=== PATIENT | male | born 1970 | race Caucasian/White ===

== ENCOUNTER 2024-10-26 07:43 | Emergency (ER) | payer OTHER ==
[~2024-10-26] VITALS: Ht 172.7 cm; Wt 87.0 kg
[~2024-10-26 07:43] MED LIST: CALC667C MT; FURO-152 PO; FURO40TA5 PO; HYDR50TA39 PO; ISOS30TA11 PO; METO-396 MT; ROPI2TAB28 MT; SITA25TA3 MT
[2024-10-26 08:01] VITALS: O2SAT 100
[2024-10-26 08:26] LABS: HEMATOCRIT 25.1 % (42.0-52.0); HEMOGLOBIN 8.1 g/dL (14.0-18.0); MEAN CORPUSCULAR HEMOGLOBIN 30.5 pg (28.0-32.0); MEAN CORPUSCULAR HGB CONC 32.4 g/dL (31.0-37.0); MEAN CORPUSCULAR VOLUME 94.3 fL (80.0-94.0); PLATELET 273 x1000/uL (130-400); RED BLOOD CELL COUNT 2.66 mill/uL (4.7-6.1); RED CELL DISTRIBUTION WIDTH 15.8 % (11.6-14.6); WHITE BLOOD COUNT 12.6 x1000/uL (4.5-11.0)
[2024-10-26 08:36] LABS: CHLORIDE 102 mEq/L (98-107); POTASSIUM 4.5 mEq/L (3.5-5.1); SODIUM 136 mEq/L (136-145)
[2024-10-26 08:37] LABS: CALCIUM 8.7 mg/dL (8.7-10.4); CARBON DIOXIDE 23 mEq/L (21-32)
[2024-10-26 08:42] LABS: GLUCOSE 119 mg/dL (70-105); UREA NITROGEN BLOOD 60 mg/dL (9-23)
[2024-10-26 08:43] LABS: TROPONIN I HIGH SENSITIVITY 32 ng/L (3.0-53)
[2024-10-26 08:44] LABS: ALANINE AMINOTRANSFERASE 54 IU/L (10-49); ALBUMIN 3.7 g/dL (3.2-4.8); ASPARTATE AMINOTRANSFERASE 47 IU/L (<34); BILIRUBIN TOTAL 0.3 mg/dL (0.1-1.0); PROTEIN TOTAL 7.1 g/dL (6.0-8.3)
[2024-10-26] MEDS: FAMOTIDINE 20MG TABLET PO ONE (08:52)
[2024-10-26] MEDS: MAGNESIUM/ALUMINUM HYDROXIDE/SIMETHICONE 30ML UDC PO ONE (08:52)
[2024-10-26 09:05] LABS: CREATININE 6.6 mg/dL (0.6-1.3)
[2024-10-26 10:09] VITALS: BP 139/60; PULSE 82; RESP 16; TEMP 36.7; O2SAT 100
[2024-10-26] MEDS: ALPRAZOLAM 0.25 MG TABLET PO ONE (10:18)
== END 2024-10-26 10:19 | disposition home or self-care (01) ==
LOC: ER 07:43 → CANBEDREQ 10:15 → ER 10:19
DX: F41.9 Anxiety disorder, unspecified (principal); E11.22 Type 2 diabetes mellitus with diabetic chronic kidney disease; N18.6 End stage renal disease; I12.0 Hypertensive chronic kidney disease with stage 5 chronic kidney disease or end stage renal disease; Z79.84 Long term (current) use of oral hypoglycemic drugs; Z79.899 Other long term (current) drug therapy; Z99.2 Dependence on renal dialysis; Z98.890 Other specified postprocedural states
CPT/HCPCS: 36415; 71045; 80053; 83880; 84484; 85027; 93005; 99285